=== PATIENT | female | born 1955 | race Caucasian/White ===

== ENCOUNTER 2021-05-21 22:26 | Inpatient (IN) | payer OTHER ==
[~2021-05-21] VITALS: Ht 160 cm; Wt 68.0 kg
[2021-05-21 22:28] VITALS: BP 154/84
--- NOTE | 2021-05-21 22:28 | NUR ---
BIB TO ER BED 5
--- NOTE | 2021-05-21 22:30 | NUR ---
PATIENT BIBA TO ED WITH C/O COUGH . DENIES N/V/D; SKIN IS PINK/WARM/DRY; AAOX4 WITH LUNGS CLEAR BL; HR EVEN AND REGULAR; PATIENT STATES PAIN OF 0/10 AT THIS TIME; VSS; PATIENT POSITIONED FOR COMFORT; HOB ELEVATED; BEDRAILS UP X2; BED DOWN. ER MD MADE AWARE OF PT STATUS. PMH : MEHREEN BUSCH
--- NOTE | 2021-05-21 23:08 | NUR ---
Patient being evaluated by physician at bedside.
[2021-05-21] MEDS ORDERED: ONDANSETRON 4 MG/2 ML VIAL IVP ONE (23:15)
[2021-05-21] MEDS ORDERED: NACL 0.9% 500 ML IV ONE (23:15)
--- NOTE | 2021-05-21 23:27 | NUR ---
EKG PERFORMED AT BEDSIDE. EKG READS SINUS RHYTHM @ 83
--- NOTE | 2021-05-21 23:47 | NUR ---
PTS SISTER, TAQUERIA
[2021-05-21 23:48] LABS: BASOPHILS # (AUTO) 0.1 K/uL (0.00-0.22); BASOPHILS % (AUTO) 0.8 % (0.0-2.0); EOSINOPHILS % (AUTO) 0.5 % (0.0-4.0); HEMATOCRIT 37.1 % (36-48); HEMOGLOBIN 12.5 g/dL (12.0-16.0); LYMPHOCYTES # (AUTO) 1.3 K/uL (2.5-16.5); MEAN CORPUSCULAR HEMOGLOBIN 31 pg (27-31); MEAN CORPUSCULAR HGB CONC 34 g/dL (33-37); MEAN CORPUSCULAR VOLUME 92.5 fL (80-94); MONOCYTES # (AUTO) 0.6 K/uL (0.8-1.0); MONOCYTES % (AUTO) 6.4 % (1.7-9.3); NEUTROPHILS # (AUTO) 7.3 K/uL (1.8-7.7); NEUTROPHILS % (AUTO) 78.3 % (42.2-75.2); PLATELET COUNT (AUTO) 255 K/uL (140-450); RED BLOOD CELL COUNT(AUTO) 4.01 MIL/uL (4.20-5.40); WHITE BLOOD COUNT (AUTO) 9.4 K/uL (4.8-10.8)
[2021-05-22 00:09] LABS: ALBUMIN 3.3 g/dL (3.4-5.0); ANION GAP 11.3 (8-16); CARBON DIOXIDE 25.9 mmol/L (21-32); CREATININE 0.9 mg/dL (0.6-1.3); POTASSIUM 4.2 mmol/L (3.5-5.1); TOTAL BILIRUBIN 0.3 mg/dL (0.0-1.0)
--- NOTE | 2021-05-22 00:26 | NUR ---
PT TAKEN TO CT VIA MARSHA
--- NOTE | 2021-05-22 00:40 | NUR ---
RETURNED FROM CT
[2021-05-22] MEDS ORDERED: ONDANSETRON 4 MG/2 ML VIAL IVP ONE (00:55)
[2021-05-22] MEDS ORDERED: ONDANSETRON 4 MG/2 ML VIAL ONE (00:56)
[2021-05-22 01:41] LABS: BILIRUBIN,URINE NEGATIVE (NEGATIVE); BLOOD, URINE 1+ (NEGATIVE); COLOR,URINE YELLOW (YELLOW); LEUKOCYTE ESTERASE ,URINE 3+ (NEGATIVE); NITRITE, URINE NEGATIVE (NEGATIVE); UGLUCOSE NEGATIVE (NEGATIVE)
--- NOTE | 2021-05-22 02:00 | NUR ---
Patient appears to be resting comfortably in bed. Vital Signs within normal limits. Respirations even and unlabored.
[2021-05-22 02:01] LABS: APPEARANCE,URINE HAZY (CLEAR)
[2021-05-22 02:02] LABS: WBC,URINE 20-60 /HPF (0-5)
[2021-05-22] MEDS ORDERED: PIPERACILLIN/TAZOBACTAM 4.5 GM in DEXTROSE 5% 100 ML IV ONE (02:15)
[2021-05-22] MEDS ORDERED: PIPERACILLIN/TAZOBACTAM 4.5 GM VIAL IV ONE (02:16)
[2021-05-22] MEDS ORDERED: ONDANSETRON 4 MG/2 ML VIAL IVP PRN (02:30)
[2021-05-22] MEDS: NACL 0.9% 1,000 ML IV SCH ×4 (02:30→22:30)
[2021-05-22] MEDS ORDERED: CARB200C7 PO (02:34)
[2021-05-22] MEDS ORDERED: VALP-22 GT (02:34)
[2021-05-22] MEDS ORDERED: CALC1TAB72 PO (02:34)
[2021-05-22] MEDS ORDERED: PAX20 PO (02:36)
[2021-05-22] MEDS ORDERED: RALO60TA PO (02:37)
[2021-05-22] MEDS ORDERED: TAMS0.4C96 PO (02:38)
[2021-05-22] MEDS ORDERED: SULF-59 PO (02:39)
[2021-05-22] MEDS ORDERED: ONDA4TAB PO (02:41)
--- NOTE | 2021-05-22 07:14 | NUR ---
Report and continuation of care received from SIENNA Maldonado.
--- NOTE | 2021-05-22 07:29 | NUR ---
Patient resting comfortably in semi-fowlers position. sugar grinder in place. VSS; respirations even/unlabored. Bed locked in lowest position, side rails x 2 for pt safety, call light in reach.
--- NOTE | 2021-05-22 07:29 | NUR ---
Urine output discarded from Cruz catheter: 2100 mL clear/straw urine.
--- NOTE | 2021-05-22 07:31 | NUR ---
Contacted SIENNA Ceja; advised to call back in 10 minutes.
--- NOTE | 2021-05-22 07:44 | NUR ---
Patient will be admitted to care of Dr. Howard. Admited to Telemetry. Will go to room 104-B. Belongings list completed. Report to SIENNA Ceja.
--- NOTE | 2021-05-22 07:44 | NUR ---
Report given to SIENNA Ceja. Advised of 10 minute ETA d/t EMT transporting another Tele pt at this time.
--- NOTE | 2021-05-22 08:30 | NUR ---
RECEIVED REPORT FROM ER NURSE. ADMITTED 65Y/O FEMALE FROM HOME. WITH CHIEF COMPLAINT OF LEFT FLANK PAIN AND VOMITING. ADMITTING DX OF LEFT PYELONEPHRITIS AND LEFT KIDNEY STONES. HX HTN, CVA WITH RIGHT SIDE SEVERE WEAKNESS. PT IS AOX2, ABLE TO MAKE NEEDS KNOWN IN ARAB[place], SPEECH IS DELAYED AND SLURRED. NO C/O PAIN, NO SOB ON ROOM AIR, NONAMBULATORY. BAKER INTACT AND PATENT. IV LAC 20G RUNNING IVF. SAFETY PRECAUTIONS IN PLACE. WILL CONTINUE TO MONITOR
--- NOTE | 2021-05-22 09:00 | NUR ---
MICHELL BY DR REDDY. TALKED TO FAMILY VIA PHONE
[2021-05-22] MEDS ORDERED: POTASSIUM CHLORIDE 10 MEQ TABER PO PRN (11:15)
[2021-05-22] MEDS ORDERED: LORazepam 2 MG/ML VIAL IM/IVP PRN (11:15)
[2021-05-22] MEDS ORDERED: HYDROcodone/APAP 5/325 MG 1 TAB TAB PO PRN (11:15)
[2021-05-22] MEDS ORDERED: DOCUSATE SODIUM 100 MG GELCAP PO PRN (11:15)
[2021-05-22] MEDS ORDERED: MORPHINE SULFATE 2 MG/ML SYR IVP PRN (11:15)
[2021-05-22] MEDS ORDERED: ACETAMINOPHEN 325 MG TAB PO PRN (11:15)
[2021-05-22] MEDS ORDERED: MAG SULF 2000 MG/WATER PREMIX 50 ML IV PRN (11:15)
[2021-05-22] MEDS ORDERED: ZOLPIDEM 5 MG TAB PO PRN (11:15)
[2021-05-22 11:18] VITALS: BP 126/65
--- NOTE | 2021-05-22 11:50 | NUR ---
PT ASLEEP IN BED AT THIS TIME. FLACC 0, NO SOB
[2021-05-22 12:25] LABS: BASOPHILS # (AUTO) 0.1 K/uL (0.00-0.22); BASOPHILS % (AUTO) 0.8 % (0.0-2.0); EOSINOPHILS % (AUTO) 0.6 % (0.0-4.0); HEMATOCRIT 34.6 % (36-48); HEMOGLOBIN 11.5 g/dL (12.0-16.0); LYMPHOCYTES # (AUTO) 1.5 K/uL (2.5-16.5); LYMPHOCYTES % (AUTO) 21.4 % (20.5-51.1); MEAN CORPUSCULAR HEMOGLOBIN 32 pg (27-31); MEAN CORPUSCULAR HGB CONC 33 g/dL (33-37); MEAN CORPUSCULAR VOLUME 94.9 fL (80-94); MONOCYTES # (AUTO) 0.6 K/uL (0.8-1.0); MONOCYTES % (AUTO) 8.5 % (1.7-9.3); NEUTROPHILS # (AUTO) 4.8 K/uL (1.8-7.7); NEUTROPHILS % (AUTO) 68.7 % (42.2-75.2); PLATELET COUNT (AUTO) 242 K/uL (140-450); RED BLOOD CELL COUNT(AUTO) 3.64 MIL/uL (4.20-5.40); RED CELL DISTRIBUTION WIDTH 14.2 % (11.6-13.7); WHITE BLOOD COUNT (AUTO) 6.9 K/uL (4.8-10.8)
[2021-05-22 12:47] LABS: ANION GAP 5.9 (8-16); CARBON DIOXIDE 28.2 mmol/L (21-32); CREATININE 0.9 mg/dL (0.6-1.3); POTASSIUM 4.1 mmol/L (3.5-5.1)
--- NOTE | 2021-05-22 12:50 | NUR ---
PT AWAKE IN BED, NO C/O PAIN, RESPIRATIONS ARE EVEN AND UNLABORED
[2021-05-22 13:01] LABS: MAGNESIUM 1.9 mg/dL (1.8-2.4); PHOSPHORUS 3.1 mg/dL (2.5-4.9); THYROID STIMULATING HORMONE 1.21 uIU/mL (0.34-3.74)
--- NOTE | 2021-05-22 15:33 | NUR ---
SISTER AT BEDSIDE, NO APPARENT DISTRESS
[2021-05-22 16:00] VITALS: BP 135/72
[2021-05-22] MEDS: ONDANSETRON 4 MG/2 ML VIAL IM/IVP PRN (17:30)
--- NOTE | 2021-05-22 17:30 | NUR ---
pt awake and alert no c/o pain no sob .sister at bedside
--- NOTE | 2021-05-22 18:36 | NUR ---
pt eating dinner at this time, no apparent distress
--- NOTE | 2021-05-22 19:30 | NUR ---
RECIEVED BEDSIDE ENDORSEMENT FROM DAY SHIFT RN, PT LYING IN BED RESTING, A&OX2/3, ABLE TO MAKE NEEDS KNOWN AND FOLLOWS COMMANDS, SPEECH IS DELAYED AND SLURRED, SR ON MONITOR, ON ROOM AIR, VSS, AFEBRILE, SKIN WARM DRY AND INTACT, RSIDE WEAKNESS D/T HX OF CVA, LAC 20 G PIV INFUSING NS @ 150MLS/HR, FC IN PLACE DRAINING VIA GRAVITY, PT SHOWING NO SIGNS OF ACUTE DISTRESS, SAFETY MEASURES IN PLACE, WILL CONTINUE WITH CURRENT POC
[2021-05-22 20:00] VITALS: BP 119/73
[2021-05-22] MEDS: carBAMazepine 200 MG TAB PO SCH (20:04)
[2021-05-22] MEDS: NYSTATIN CRE 100 MU/GM 15 GM TUBE TP SCH (20:08)
--- NOTE | 2021-05-22 20:11 | NUR ---
ADMINISTERED 2100H MEDICATIONS PER MD ORDERS
--- NOTE | 2021-05-22 22:20 | NUR ---
RECIEVED BEDSIDE ENDORSEMENT FROM DAY SHIFT RN, PT LYING IN BED RESTING, A&OX2/3, ABLE TO MAKE NEEDS KNOWN AND FOLLOWS COMMANDS, SPEECH IS DELAYED AND SLURRED, SR ON MONITOR, ON ROOM AIR, VSS, AFEBRILE, SKIN WARM DRY AND INTACT, RSIDE WEAKNESS D/T HX OF CVA, LAC 20 G PIV INFUSING NS @ 150MLS/HR, FC IN PLACE DRAINING VIA GRAVITY, PT SHOWING NO SIGNS OF ACUTE DISTRESS, SAFETY MEASURES IN PLACE, WILL CONTINUE WITH CURRENT POC Addendum: 05/22/21 at 2223 by Michael Saravia RN RECIEVED AT 1930H
[2021-05-23] VITALS: BP 144/66
[2021-05-23] MEDS: NACL 0.9% 1,000 ML IV SCH ×4 (01:25→23:50)
--- NOTE | 2021-05-23 01:45 | NUR ---
PT ASLEEP AND SHOWING NO SIGNS OF ACUTE DISTRESS
[2021-05-23 04:00] VITALS: BP 124/61
[2021-05-23 05:39] LABS: BASOPHILS # (AUTO) 0.1 K/uL (0.00-0.22); BASOPHILS % (AUTO) 0.7 % (0.0-2.0); EOSINOPHILS # (AUTO) 0.1 K/uL (0-0.4); EOSINOPHILS % (AUTO) 1.7 % (0.0-4.0); HEMATOCRIT 32.4 % (36-48); HEMOGLOBIN 10.7 g/dL (12.0-16.0); LYMPHOCYTES # (AUTO) 1.9 K/uL (2.5-16.5); LYMPHOCYTES % (AUTO) 21.4 % (20.5-51.1); MEAN CORPUSCULAR HEMOGLOBIN 32 pg (27-31); MEAN CORPUSCULAR HGB CONC 33 g/dL (33-37); MEAN CORPUSCULAR VOLUME 94.8 fL (80-94); MONOCYTES # (AUTO) 0.8 K/uL (0.8-1.0); MONOCYTES % (AUTO) 9.2 % (1.7-9.3); NEUTROPHILS # (AUTO) 5.9 K/uL (1.8-7.7); PLATELET COUNT (AUTO) 214 K/uL (140-450); RED BLOOD CELL COUNT(AUTO) 3.42 MIL/uL (4.20-5.40); RED CELL DISTRIBUTION WIDTH 14.4 % (11.6-13.7); WHITE BLOOD COUNT (AUTO) 8.8 K/uL (4.8-10.8)
[2021-05-23 05:55] LABS: ANION GAP 8.4 (8-16); CARBON DIOXIDE 26.4 mmol/L (21-32); CREATININE 0.7 mg/dL (0.6-1.3); POTASSIUM 3.8 mmol/L (3.5-5.1)
[2021-05-23 06:24] LABS: CHOL/HDL RATIO 2.9 (1-4.5); MAGNESIUM 1.8 mg/dL (1.8-2.4); PHOSPHORUS 2.9 mg/dL (2.5-4.9)
--- NOTE | 2021-05-23 07:30 | NUR ---
RECEIVED REPORT FROM night NURSE. 65Y/O FEMALE FROM HOME. WITH CHIEF COMPLAINT OF LEFT FLANK PAIN AND VOMITING. ADMITTING DX OF LEFT PYELONEPHRITIS AND LEFT KIDNEY STONES. HX HTN, CVA WITH RIGHT SIDE SEVERE WEAKNESS. PT IS AOX2, ABLE TO MAKE NEEDS KNOWN IN [place], SPEECH IS DELAYED. NO C/O PAIN, NO SOB ON ROOM AIR, NONAMBULATORY. BAKER INTACT AND PATENT. IV LAC 20G RUNNING IVF. SAFETY PRECAUTIONS IN PLACE. WILL CONTINUE TO MONITOR
--- NOTE | 2021-05-23 07:30 | NUR ---
ENDORSED TO DAY SHIFT RN FOR CONTINUITY OF CARE
[2021-05-23 08:00] VITALS: BP 137/61
[2021-05-23] MEDS: RALOXIFENE 60 MG TAB PO SCH (08:25)
[2021-05-23] MEDS: carBAMazepine 200 MG TAB PO SCH ×2 (08:25→21:30)
[2021-05-23] MEDS: PARoxetine 20 MG TAB PO SCH (08:25)
[2021-05-23] MEDS: VALPROIC ACID 250 MG/5 ML UDC GT SCH (08:25)
[2021-05-23] MEDS: CHOLECALCIFEROL 1,000 IU TAB PO SCH (08:26)
[2021-05-23] MEDS: NYSTATIN CRE 100 MU/GM 15 GM TUBE TP SCH ×2 (08:26→21:34)
--- NOTE | 2021-05-23 08:30 | NUR ---
DUE MORNING MEDS GIVEN. HEPARIN PRIOR TO SURGERY
--- NOTE | 2021-05-23 08:54 | NUR ---
PATIENT HAS BEEN SCREENED AND CATEGORIZED HIGH NUTRITION RISK. PATIENT WILL BE SEEN WITHIN 1-2 DAYS OF ADMISSION. 05/23/[address]
--- NOTE | 2021-05-23 11:12 | NUR ---
PT ASLEEP IN BED AT THIS TIME. FLACC 0, NO SOB
[2021-05-23 12:00] VITALS: BP 125/61
[2021-05-23 13:01] LABS: T4 (THYROXINE) 6.1 ug/dL (4.5 - 12.0)
--- NOTE | 2021-05-23 13:30 | NUR ---
PT RESTING IN BED, NO APPARENT DISTRESS
--- NOTE | 2021-05-23 14:11 | NUR ---
05/23/21 RD INITIAL ASSESSMENT COMPLETED PLEASE REFER TO NUTRITION ASSESSMENT UNDER CARE ACTIVITY FOR ESTIMATED NUTRITIONAL NEEDS. 1. CONTINUE NPO MEDICALLY NECESSARY 2. ONCE MEDIALLY CLEARED FOR PO INTAKE CONSIDER CARDIAC DIET 3. RD TO FOLLOW-UP 2-3 DAYS, HIGH RISK MABEL BRICENO, RD
--- NOTE | 2021-05-23 15:00 | NUR ---
FAMILY AT BEDSIDE
[2021-05-23 16:00] VITALS: BP 137/62
--- NOTE | 2021-05-23 16:00 | NUR ---
PT OFF UNIT TO OR
[2021-05-23] MEDS ORDERED: MEPERIDINE 25 MG/ML SYR ONE ×2 (16:48→18:11)
[2021-05-23] MEDS ORDERED: ROCURONIUM 50 MG/5 ML VIAL IV ONE (16:49)
[2021-05-23] MEDS ORDERED: LIDOCAINE MPF 2% 100 MG/5 ML VIAL INJ ONE (16:49)
[2021-05-23] MEDS ORDERED: ETOMIDATE 20 MG/10 ML VIAL IVP ONE (16:50)
[2021-05-23] MEDS ORDERED: SUCCINYLCHOLINE CHLORIDE 200 MG/10 ML VIAL IVP ONE (16:56)
[2021-05-23] MEDS ORDERED: SEVOFLURANE 250 ML BTL INH ONE (16:56)
[2021-05-23] MEDS ORDERED: DEXAMETHASONE 4 MG/ML VIAL ONE (18:04)
[2021-05-23] MEDS ORDERED: ONDANSETRON 4 MG/2 ML VIAL ONE (18:05)
[2021-05-23] MEDS ORDERED: NEOSTIGMINE 1:1000 10 MG/10 ML VIAL ONE (18:05)
[2021-05-23] MEDS ORDERED: GLYCOPYRROLATE 0.2 MG/ML VIAL ONE (18:05)
[2021-05-23] MEDS ORDERED: KETOROLAC 30 MG/ML VIAL ONE (18:06)
[2021-05-23] MEDS ORDERED: PROPOFOL 200 MG/20 ML VIAL IV ONE (18:06)
[2021-05-23] MEDS ORDERED: ONDANSETRON 4 MG/2 ML VIAL IVP PRN (18:30)
[2021-05-23] MEDS ORDERED: fentaNYL citrate 0.05 MG/ML VIAL IVP PRN (18:30)
[2021-05-23] MEDS ORDERED: NACL 0.9% 1,000 ML IV SCH (18:30)
--- NOTE | 2021-05-23 18:55 | NUR ---
PT STILL IN OR
--- NOTE | 2021-05-23 19:20 | NUR ---
PATIENT JUST CAME FROM OR. AWAKE, ALERT NO RESPIRATORY DISTRESS NOTED AT THIS TIME. RESPIRATION EVEN UNLABORED. REPORT GIVEN FROM OR NURSE. O2 ADMINISTERED AT 2LPM TOLERATING WELL WITH O2 SATURATION OF 95%. V/S MONITORED. SAFETY MEASURES IN PLACE. CALL LIGHT WITHIN REACH. WILL CONTINUE TO MONITOR. V/S- 150/71,72, 18,95%, 98.0.
[2021-05-23 20:00] VITALS: BP 150/71
--- NOTE | 2021-05-23 21:30 | NUR ---
SCHEDULED MEDS GIVEN ORDERED.
[2021-05-23] MEDS: ONDANSETRON 4 MG/2 ML VIAL IM/IVP PRN (23:49)
--- NOTE | 2021-05-23 23:49 | NUR ---
PATIENT WITH EPISODE OF VOMITING. ZOFRAN GIVEN ORDERED. Addendum: 05/24/21 at 0314 by Jodie Gregory RN RN PT IS KEPT CLEAN , DRY AND COMFORTABLE. NEEDS WELL ATTENDED.
[2021-05-24] VITALS: BP 153/82
--- NOTE | 2021-05-24 03:19 | NUR ---
PATIENT IS ASLEEP. NO SIGNS OF RESPIRATORY DISTRESS. CALL LIGHT ON EASY REACH
[2021-05-24 04:00] VITALS: BP 118/61
[2021-05-24 07:04] LABS: ANION GAP 12.3 (8-16); CREATININE 0.8 mg/dL (0.6-1.3); POTASSIUM 3.3 mmol/L (3.5-5.1)
[2021-05-24 07:06] LABS: MAGNESIUM 1.4 mg/dL (1.8-2.4); PHOSPHORUS 2.6 mg/dL (2.5-4.9)
--- NOTE | 2021-05-24 07:30 | NUR ---
ENDORSED TO THE AM SHIFT NURSE FOR CONTINUITY OF CARE. PATIENT IS IN STABLE CONDITION.
[2021-05-24 08:00] VITALS: BP 95/42
[2021-05-24] MEDS: NACL 0.9% 1,000 ML IV SCH ×3 (08:18→21:56)
[2021-05-24] MEDS: PARoxetine 20 MG TAB PO SCH (08:31)
[2021-05-24] MEDS: carBAMazepine 200 MG TAB PO SCH ×2 (08:31→21:04)
[2021-05-24] MEDS: VALPROIC ACID 250 MG/5 ML UDC GT SCH (08:31)
[2021-05-24] MEDS: RALOXIFENE 60 MG TAB PO SCH (08:31)
[2021-05-24] MEDS: CHOLECALCIFEROL 1,000 IU TAB PO SCH (08:31)
[2021-05-24] MEDS: NYSTATIN CRE 100 MU/GM 15 GM TUBE TP SCH ×2 (08:42→21:05)
--- NOTE | 2021-05-24 09:30 | NUR ---
Informed Dr Howard that patient is still NPO, no procedures scheduled today. New order received for Cardiac mech soft diet. Order noted and carried out.
[2021-05-24 12:00] VITALS: BP 124/58
--- NOTE | 2021-05-24 13:00 | NUR ---
Pt resting in bed, verbally responsive, respirations even & nonlabored on O2 @ 2L/min via n/c. Cruz cath in place and draining clear sarah urine. Call light within reach.
[2021-05-24 15:07] LABS: HEMATOCRIT 34.4 % (36-48); WHITE BLOOD COUNT (AUTO) 19.8 K/uL (4.8-10.8)
[2021-05-24 15:13] LABS: BASOPHILS # (AUTO) 0.1 K/uL (0.00-0.22); BASOPHILS % (AUTO) 0.4 % (0.0-2.0); EOSINOPHILS % (AUTO) 0.1 % (0.0-4.0); HEMOGLOBIN 11.1 g/dL (12.0-16.0); LYMPHOCYTES # (AUTO) 1.3 K/uL (2.5-16.5); LYMPHOCYTES % (AUTO) 6.4 % (20.5-51.1); MEAN CORPUSCULAR HEMOGLOBIN 31 pg (27-31); MEAN CORPUSCULAR HGB CONC 32 g/dL (33-37); MEAN CORPUSCULAR VOLUME 95.7 fL (80-94); MONOCYTES # (AUTO) 0.9 K/uL (0.8-1.0); MONOCYTES % (AUTO) 4.4 % (1.7-9.3); NEUTROPHILS # (AUTO) 17.5 K/uL (1.8-7.7); NEUTROPHILS % (AUTO) 88.7 % (42.2-75.2); PLATELET COUNT (AUTO) 207 K/uL (140-450); RED BLOOD CELL COUNT(AUTO) 3.59 MIL/uL (4.20-5.40); RED CELL DISTRIBUTION WIDTH 14.7 % (11.6-13.7)
[2021-05-24 16:00] VITALS: BP 123/74
--- NOTE | 2021-05-24 17:12 | NUR ---
DC PLANNING: CALLED PATIENT DAUGHTER TAQUERIA [phone] STATED NO SNF FOR HER SISTER ,SHE IS THE PRIMARY BAIL BONDING AGENT. SHE ALSO WANTED TO CONTINUE WITH [facility]. FAXED ALL PAPER WORK TO [facility]. CM TO FOLLOW Addendum: 05/25/21 at 1136 by Yane Vang RN DC PLANNING: CALLED [facility] [phone] SPOKE WITH KARIE STATED THEY ACCEPTED PATIENT AND WILL RESUME THE CARE TOMORROW.OK TO DISCHARGE HOME. NOTIFIED ZONIA EL
--- NOTE | 2021-05-24 19:20 | NUR ---
Report given to pm nurse Jodie.
--- NOTE | 2021-05-24 19:23 | NUR ---
RECEIVED REPORT FROM AM SHIFT NURSE. PT ON BED RESTING. NO SOB NOTED AT THIS TIME. AFEBRILE. SAFETY PRECAUTION IN PLACE. CALL LIGHT WITHIN REACH.
--- NOTE | 2021-05-24 21:04 | NUR ---
DUE MEDS GIVEN ORDERED.
--- NOTE | 2021-05-24 21:53 | NUR ---
KEPT CLEAN, DRY AND COMFORTABLE. DENIES PAIN. SAFETY PRECAUTION IN PLACE CALL LIGHT WITHIN REACH.
[2021-05-24] MEDS: ONDANSETRON 4 MG/2 ML VIAL IM/IVP PRN (22:05)
--- NOTE | 2021-05-24 22:08 | NUR ---
PATIENT FEELS NAUSETED , ZOFRAN ADMINISTERED PER MD ORDERED.
[2021-05-25 04:00] VITALS: BP 104/48
--- NOTE | 2021-05-25 05:37 | NUR ---
PATIENT IS ASLEEP. NO S/S OF RESPIRATORY DISTRESS. SAFETY PRECAUTION IN PLACE. CALL LIGHT WITHIN REACH
[2021-05-25] MEDS: NACL 0.9% 1,000 ML IV SCH ×3 (05:54→17:23)
[2021-05-25 06:50] LABS: BASOPHILS % (AUTO) 0.4 % (0.0-2.0); EOSINOPHILS # (AUTO) 0.1 K/uL (0-0.4); EOSINOPHILS % (AUTO) 1.1 % (0.0-4.0); HEMATOCRIT 28.1 % (36-48); HEMOGLOBIN 9.3 g/dL (12.0-16.0); LYMPHOCYTES % (AUTO) 19.6 % (20.5-51.1); MEAN CORPUSCULAR HEMOGLOBIN 32 pg (27-31); MEAN CORPUSCULAR HGB CONC 33 g/dL (33-37); MEAN CORPUSCULAR VOLUME 95.5 fL (80-94); MONOCYTES # (AUTO) 0.8 K/uL (0.8-1.0); MONOCYTES % (AUTO) 7.6 % (1.7-9.3); NEUTROPHILS # (AUTO) 7.1 K/uL (1.8-7.7); NEUTROPHILS % (AUTO) 71.3 % (42.2-75.2); PLATELET COUNT (AUTO) 166 K/uL (140-450); RED BLOOD CELL COUNT(AUTO) 2.95 MIL/uL (4.20-5.40); RED CELL DISTRIBUTION WIDTH 14.5 % (11.6-13.7)
[2021-05-25 06:55] LABS: ANION GAP 9.4 (8-16); CARBON DIOXIDE 24.3 mmol/L (21-32); CREATININE 0.7 mg/dL (0.6-1.3); POTASSIUM 3.7 mmol/L (3.5-5.1)
[2021-05-25 07:02] LABS: MAGNESIUM 1.7 mg/dL (1.8-2.4); PHOSPHORUS 2.4 mg/dL (2.5-4.9)
--- NOTE | 2021-05-25 07:35 | NUR ---
ENDORSED TO AM RN FOR CONTINUITY OF CARE. PATIENT IS STABLE.
--- NOTE | 2021-05-25 07:40 | NUR ---
PATIENT RECEIVED FROM RECORD TESTER RN. PATIENT RESTING IN BED NO S/SX OF DISTRESS AT THIS TIME. PATIENTS EYES ARE CLOSED BREATHING IS SYMMETRICAL. FLACC (0). ALL SAFETY MEASURES ARE IN PLACE. IV SITE IS DRY CLEAN AND INTACT.
[2021-05-25] MEDS: RALOXIFENE 60 MG TAB PO SCH (08:17)
[2021-05-25] MEDS: CHOLECALCIFEROL 1,000 IU TAB PO SCH (08:17)
[2021-05-25] MEDS: VALPROIC ACID 250 MG/5 ML UDC GT SCH (08:17)
[2021-05-25] MEDS: PARoxetine 20 MG TAB PO SCH (08:17)
[2021-05-25] MEDS: carBAMazepine 200 MG TAB PO SCH (08:17)
--- NOTE | 2021-05-25 08:33 | NUR ---
MORNING MEDICATIONS GIVEN PER MD ORDER. PT EDUCATED ON MEDICATIONS. PT TOLERATED. LEFT FOREARM 20 GAUGE IV IS PATENT AND NO S/S OF PHLEBITIS. ALL SAFETY MEASURES IN PLACE.
[2021-05-25] MEDS: NYSTATIN CRE 100 MU/GM 15 GM TUBE TP SCH (09:31)
--- NOTE | 2021-05-25 10:25 | NUR ---
AT BEDSIDE. STATES SHE IS OKAY TO GO HOME
[2021-05-25] MEDS ORDERED: LEVO750T51 PO (10:26)
--- NOTE | 2021-05-25 10:55 | NUR ---
PT ROUNDED ON FLACC(0). NO S/S OF DISTRESS AT THIS TIME.
[2021-05-25 11:30] VITALS: BP 118/51
[2021-05-25 12:00] VITALS: BP 119/51
--- NOTE | 2021-05-25 12:07 | NUR ---
PTS FAMILY CALLED. SISTER VERBALIZED UNDERSTANDING FOR CONTINUITY OF CARE. SISTER SAYS SHE WILL BE HERE AT 6 PM .
--- NOTE | 2021-05-25 13:10 | NUR ---
PT CHANGED AND REPOSITIONED PT TOLERATED WELL. ABLE TO TURN TO RIGHT SIDE INDEPENDENTLY. 2 PERSON ASSIST WHEN TURNING TO LEFT.
--- NOTE | 2021-05-25 13:28 | NUR ---
05/25/21 RD FOLLOW UP COMPLETED PLEASE REFER TO NUTRITION ASSESSMENT UNDER CARE ACTIVITY FOR ESTIMATED NUTRITIONAL NEEDS. 1.CONTINUE CARDIAC MECH SOFT DIET UPON DISCHARGE 2.RECOMMEND ENSURE 1 PER DAY 3.RD TO FOLLOW-UP 3-5 DAYS, MODERATE RISK MABEL BRICENO, RD
--- NOTE | 2021-05-25 15:50 | NUR ---
PT RESTING IN BED EYES CLOSED. NO S/SX OF DISTRESS. BREATHING IS SYMMETRICAL EASY TO AROUSE.
--- NOTE | 2021-05-25 17:50 | NUR ---
PT CHANGED AND REPOSITIONED
[2021-05-25] MEDS: ONDANSETRON 4 MG/2 ML VIAL IM/IVP PRN (18:00)
--- NOTE | 2021-05-25 18:04 | NUR ---
PT COMPLAINS OF NAUSEA, PRN MEDICATION GIVEN
--- NOTE | 2021-05-25 19:06 | NUR ---
PT LEFT UNIT VIA PERSONAL WHEELCHAIR. PT IV REMOVED CANULA INTACT. FAMILY EDUCATED ON CONTINUITY OF CARE, BAKER CARE, AND MEDICATIONS. FAMILY VERBALIZED UNDERSTANDING FOR CONTINUITY OF CARE
== END 2021-05-25 19:05 | disposition home or self-care (01) | DRG 659 ==
LOC: MED 22:26 → MTU 05-22 02:31
PROC: 0TC78ZZ Extirpation of Matter from Left Ureter, Via Natural or Artificial Opening Endoscopic (ICD-10-PCS; 2021-05-23)
PROC: BT1F1ZZ Fluoroscopy of Left Kidney, Ureter and Bladder using Low Osmolar Contrast (ICD-10-PCS; 2021-05-23)
PROC: 0T778DZ Dilation of Left Ureter with Intraluminal Device, Via Natural or Artificial Opening Endoscopic (ICD-10-PCS; principal; 2021-05-23 16:30)
DX: N13.6 Pyonephrosis (principal); J69.0 Pneumonitis due to inhalation of food and vomit; E44.1 Mild protein-calorie malnutrition; M48.54XA Collapsed vertebra, not elsewhere classified, thoracic region, initial encounter for fracture; J98.11 Atelectasis; E87.1 Hypo-osmolality and hyponatremia; Z68.26 Body mass index [BMI] 26.0-26.9, adult; K76.89 Other specified diseases of liver; D71 Functional disorders of polymorphonuclear neutrophils; E87.8 Other disorders of electrolyte and fluid balance, not elsewhere classified; M81.0 Age-related osteoporosis without current pathological fracture; N31.9 Neuromuscular dysfunction of bladder, unspecified; G40.909 Epilepsy, unspecified, not intractable, without status epilepticus; Z86.73 Personal history of transient ischemic attack (TIA), and cerebral infarction without residual deficits; F03.90 Unspecified dementia, unspecified severity, without behavioral disturbance, psychotic disturbance, mood disturbance, and anxiety; E86.0 Dehydration; Z90.49 Acquired absence of other specified parts of digestive tract; Z96.641 Presence of right artificial hip joint
CPT/HCPCS: 36415; 70450; 71045; 80048; 80053; 81001; 82140; 82150; 83036; 83690; 83735; 83880; 84100; 84134; 84436; 84443; 84484; 85025; 85610; 85730; 87040; 87081; 87086; 93005; 96360; 96365; 96375; 97110; 97112; 97163-GP; 97530; 99291; C1758; C1769; C2617; J0330; J0696; J1100; J1644; J1885; J2001; J2175; J2405; J2543; J2704; J2710; J3475; J3490; J7060; Q9967